=== PATIENT | female | born 1995 | race Caucasian/White ===

== ENCOUNTER → 2017-11-09 | Outpatient (CLI) | payer OTHER ==
[~2017-11-09] MED LIST: CIPRO 500MG TA500 MG PO; NORCO 325 MG-51 TAB PO
== END ==
LOC: COL.LAB 11:31
DX: N39.0 Urinary tract infection, site not specified (principal)

== ENCOUNTER → 2018-06-10 | Outpatient (CLI) | payer OTHER | LOC: COL.LAB 11:01 | DX: Z30.9 Encounter for contraceptive management, unspecified (principal) ==

== ENCOUNTER 2020-01-21 11:10 | Outpatient (CLI) | payer OTHER ==
[~2020-01-21] VITALS: Ht 152.4 cm; Wt 94.5 kg
--- NOTE | 2020-01-21 11:00 | NUR ---
Pt arrives on unit ambulatory with RN. States "not feeling baby move since last night at 1900." Denies LOF, vaginal bleeding, and ctx. EFM and toco applied. BP elevated. Admission assessment completed. Pt updated on POC. No questions or concerns at this time.
[~2020-01-21 11:10] MED LIST changes: +ADVIL200 MG PO; +LIALDA 1.2 GM1.2 GM; +LIALDA 1.2 GM1.2 GM PO; +MUCINEX FAST-M1 EA10 PO
[2020-01-21] MEDS ORDERED: PRENATAL MVI (11:35)
[2020-01-21] MEDS ORDERED: OSCAL 500 TAB500 MG PO (11:35)
[2020-01-21 11:45] VITALS: BP 132/75; PULSE 83; TEMP 98.6
== END 2020-01-21 11:45 | disposition home or self-care (01) ==
LOC: LDRO 11:10
DX: O34.30 Maternal care for cervical incompetence, unspecified trimester (principal); Z3A.00 Weeks of gestation of pregnancy not specified

== ENCOUNTER 2020-04-10 14:34 | Inpatient (IN) | payer OTHER ==
[~2020-04-10] VITALS: Ht 152.4 cm; Wt 98.6 kg
[~2020-04-10 14:34] MED LIST changes: +OSCAL 500 TAB500 MG PO; +PRENATAL MVI
[2020-04-14] VITALS (66 sets, daily range): BP systolic 124–174; BP diastolic 56–105; PULSE 78–129; TEMP 97.7–98.8
--- NOTE | 2020-04-14 01:00 | NUR ---
0100 [0200 DAYLIGHT SAVINGS] G1L0 40 WEEK GEST ADM TO LR6 IN LABOR. WAS SCHEDULED FOR AM INDUCTION. EFM ON. PT UNCOMFORTABLE AND MOVING AROUND. 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 UNCOMFORTABLE WITH CONTRACTIONS. SVE 09/21/1. ADM ASSESSMENT COMPLETED. B/P 170/96. STATES B/P'S HAVE BEEN ELEVATED ON LAST COUPLE OF OFFICE VISITS.
--- NOTE | 2020-04-14 01:20 | NUR ---
0120 DR ARCHULETA NOTIFIED OF PT AND PROGRESS. ORDERS RECEIVED TO ADM IN PATIENT.
--- NOTE | 2020-04-14 01:50 | NUR ---
0150 IV STARTED IN RIGHT HAND. ALMOND GRINDER CALLED FOR EPIDURAL. 0200 SITTING ON SIDE OF BED FOR EPID PLACEMENT. SEE ANESTHSIA RECORDS FOR MORE INFORMATION.
[2020-04-14 02:13] LABS: BASO # 0.1 (0.0-0.2); BASO % 0.2 % (0.0-2.0); EOS # 0.1 (0.0-0.7); EOS % 0.4 % (0-4.0); GRAN # 17.6 (1.4-6.5); GRAN % 82.3 % (42.2-75.2); HEMOGLOBIN 12.4 g/dl (12.5-16.0); LYMPH # 2.3 (1.2-3.4); LYMPH % 10.7 % (20.0-51.0); MEAN CELL VOLUME 79 fl (80.0-100.0); MEAN CORPUSCULAR HEMOGLOBIN 27 pg (27.0-31.0); MEAN CORPUSCULAR HGB CONC 34 g/dl (33.0-37.0); MEAN PLATELET VOLUME 12.5 fl (7.4-10.4); MONO # 1.2 (0.1-0.6); MONO % 5.7 % (1.7-9.3); PLATELET COUNT 241 K/mm3 (130-400); RED BLOOD COUNT 4.65 M/mm3 (4.10-5.30); REDCELL DISTRIBUTION WIDTH-CV 12.9 % (11.5-14.5)
[2020-04-14 02:14] LABS: HEMATOCRIT 36.8 % (37.0-47.0)
[2020-04-14 02:15] LABS: BILIRUBIN,TOTAL 0.7 mg/dL (0.0-1.0); CALCIUM 9.1 mg/dL (8.4-10.2); CREATININE, serum 0.45 (0.52-1.25); POTASSIUM 3.5 mmol/L (3.4-5.0); TOTAL PROTEIN 7.1 gm/dL (6.4-8.2)
--- NOTE | 2020-04-14 02:15 | NUR ---
0215 REMAINS SITTING FOR EPIDURAL. UNABLE TO TRACE FHT'S WHILE SITTING UP.
--- NOTE | 2020-04-14 02:30 | NUR ---
0230 REMAINS UNCOMFORTABLE WITH CONTRACTIONS. NOT FEELING ANY RELIEF FROM EPIDURAL
--- NOTE | 2020-04-14 02:45 | NUR ---
0245 SITTING ON SIDE OF BED FOR REPLACEMENT OF EPIDURAL. SEE ANESTHESIA RECORDS FOR MORE INFORMATION.
--- NOTE | 2020-04-14 06:20 | NUR ---
0620-Recieved bedside shift report from JOAQUIN Fry. Patient sitting WR reports comfortable with epidural. IVF to right hand, Rojas to DD, clear yellow urine. Denies needs. Updated on plan of care. 0635-SVE 6-/-2, Moderate amount of bloody show and clear fluid on bed pad. Trini care provided. Repositioned WL, Dr. Treviño updated see physician notification.
--- NOTE | 2020-04-14 08:50 | NUR ---
[id number] minimal variability in FHR no decels despite position changes, Oxygen via oxymask at 10l/min. Patient WL with peanut ball.
--- NOTE | 2020-04-14 09:10 | NUR ---
Dr. Treviño to patient room, SVE by , Repositioned WR with peanut ball.
--- NOTE | 2020-04-14 10:20 | NUR ---
1020-Dr. Treviño in to patient room for exam. SVE unchanged. Orders to start pitocin. Pit at 2mu/min per protocol and MD order.
--- NOTE | 2020-04-14 14:30 | NUR ---
1430-SVE 10/100/+2, Patient insturcted on pushing. 1435-Patient begins pushing with RN at bedside through contractions. Moves vertex well. 1445- Notified of decels in FHR with pushing efforts, see MD notification. 1505-Dr. Treviño on unit. 1507-Patient begins pushing wit MD at bedside. Moves vertex well. 1515-Spontaneous delivery of head immediately followed by body. Viable female to mothers abdomen. Care of infant attented by JOAQUIN Huber. Apgars 5/7/8. Cord clamped x2 and cut by FOB. taken to radiant warmer. 1519-Spontanous delivery of intact placenta by . Fundal massage firm, pia parra MD VO for hemabate IM and pitocin bolus per protocol infusing. EBL 400ml per MD. 1526-hemabate to left thigh. 2nd degree perineal laceration repaired by MD. Trini care provided. Updated patient on plan of care and safety.
--- NOTE | 2020-04-14 17:30 | NUR ---
1730-Patient easily up to bathroom. Ambulates with steady gait. Voids 300ml dark antonio urine. Trini care assisted. Oriented to room 208. Updated on plan of care and safety.
[2020-04-15] VITALS: BP 137/82; PULSE 73; TEMP 97.8
[2020-04-15 04:30] VITALS: BP 123/89; PULSE 66; TEMP 97.8
[2020-04-15] MEDS ORDERED: IBU600 MG PO (06:02)
[2020-04-15] MEDS ORDERED: PERCOCET 325 MG1 TA2 PO (06:02)
[2020-04-15 07:15] LABS: HEMATOCRIT 30.3 % (37.0-47.0); HEMOGLOBIN 10.3 g/dl (12.5-16.0)
[2020-04-15 08:07] VITALS: BP 142/78; PULSE 82; TEMP 98.3
--- NOTE | 2020-04-15 09:25 | NUR ---
Initial visit; Parents thanked Bilingual Patient Support Caseworker for offering congratulations and God's blessings for the of their daughter. Bilingual Patient Support Caseworker thanked family for choosing [facility].
== END 2020-04-15 17:00 | disposition home or self-care (01) | DRG 806 ==
LOC: OB 14:34 → LDR 04-14 02:00 → OB 04-14 02:00
PROVIDERS: Obstetrics & Gynecology; ADMIT Obstetrics & Gynecology
PROC: 10E0XZZ Delivery of Products of Conception, External Approach (ICD-10-PCS; principal; 2020-04-14)
PROC: 0KQM0ZZ Repair Perineum Muscle, Open Approach (ICD-10-PCS; 2020-04-14)
PROC: 10907ZC Drainage of Amniotic Fluid, Therapeutic from Products of Conception, Via Natural or Artificial Opening (ICD-10-PCS; 2020-04-14)
DX: O13.4 Gestational [pregnancy-induced] hypertension without significant proteinuria, complicating childbirth (principal); K51.90 Ulcerative colitis, unspecified, without complications; Z37.0 Single live birth; O99.62 Diseases of the digestive system complicating childbirth; O99.214 Obesity complicating childbirth; E66.9 Obesity, unspecified; Z3A.40 40 weeks gestation of pregnancy
CPT/HCPCS: J2405; J2590; J7120

== ENCOUNTER → 2020-04-11 | Outpatient (CLI) | payer OTHER ==
[~2020-04-11] MED LIST changes: +IBU600 MG PO; +PERCOCET 325 MG1 TA2 PO; +PROCARDIA XL 3030 MG PO
== END | disposition still patient (30) ==
LOC: ZCOL.LAB 04-10 14:32
DX: Z20.828 Contact with and (suspected) exposure to other viral communicable diseases (principal)

== ENCOUNTER 2020-04-17 21:18 | Observation (INO) | payer OTHER ==
[~2020-04-17] VITALS: Ht 152.4 cm; Wt 96.0 kg
[~2020-04-17 21:18] MED LIST changes: -PROCARDIA XL 3030 MG PO
[2020-04-17 21:47] LABS: BASO % 0.3 % (0.0-2.0); EOS # 0.3 (0.0-0.7); EOS % 2.1 % (0-4.0); GRAN # 7.8 (1.4-6.5); GRAN % 65.6 % (42.2-75.2); HEMOGLOBIN 10.7 g/dl (12.5-16.0); LYMPH % 25.2 % (20.0-51.0); MEAN CELL VOLUME 80 fl (80.0-100.0); MEAN CORPUSCULAR HEMOGLOBIN 27 pg (27.0-31.0); MEAN CORPUSCULAR HGB CONC 33 g/dl (33.0-37.0); MEAN PLATELET VOLUME 11.2 fl (7.4-10.4); MONO # 0.7 (0.1-0.6); PLATELET COUNT 288 K/mm3 (130-400); REDCELL DISTRIBUTION WIDTH-CV 12.7 % (11.5-14.5)
[2020-04-17 21:58] LABS: ALBUMIN 3.4 gm/dL (3.5-5.0); BILIRUBIN,TOTAL 0.5 mg/dL (0.0-1.0); CALCIUM 8.7 mg/dL (8.4-10.2); CREATININE, serum 0.58 (0.52-1.25); POTASSIUM 3.6 mmol/L (3.4-5.0); TOTAL PROTEIN 6.1 gm/dL (6.4-8.2)
[2020-04-17 22:12] LABS: COLLECTION METHOD CATHETER
[2020-04-17 22:18] LABS: PH 7 (5-8); SQUAMOUS EPITHELIAL None Seen /hpf; URINE APPEARANCE Clear; URINE BACTERIA None Seen /hpf; URINE BILIRUBIN Negative (NEGATIVE); URINE BLOOD Negative (NEGATIVE); URINE COLOR Yellow; URINE GLUCOSE Negative (NEGATIVE); URINE KETONE Negative (NEGATIVE); URINE LEUKOCYTE ESTERASE Negative (NEGATIVE); URINE NITRATE Negative (NEGATIVE); URINE PROTEIN(semi-quant) Negative (NEGATIVE); URINE RBC 0-2 /hpf; URINE UROBILINOGEN Negative (NEGATIVE)
--- NOTE | 2020-04-17 23:20 | NUR ---
REPORT RECEIVED FROM ER STAFF PRIOR TO PT ARRIVAL ON THE UNIT. ER STATES THAT PT WILL ARRIVE WITH TELEMETRY IN PLACE. DR. BANUELOS STATES THIS IS NOT NECESSARY. ER CHARGE NURSE NOTIFED, INTEND TO DC TELEMETRY PRIOR TO PT ARRIVAL TO OB.
[2020-04-17 23:30] VITALS: BP 153/83; PULSE 83; TEMP 97.9
--- NOTE | 2020-04-17 23:30 | NUR ---
PT TO UNIT VIA WHEELCHAIR FROM ER WITH ELEVATED BP'S 4 DAYS . BP ELEVATED ON ARRIVAL AT 153/83, MILD EDEMA TO BLE, PT RECEIVED TYLENOL IN THE ER FOR COMPLAINTS OF HEADACHE BUT NOW STATES THIS HAS RESOLVED AND SHE HAS NO PAIN AT THIS TIME. SERIAL BP'S SET, WILL GIVE PO PROCARDIA PER DR. BANUELOS. PLAN OF CARE REVIEWED WITH PT, UNDERSTANDING VERBALIZED.
[2020-04-17 23:45] VITALS: BP 155/114; PULSE 81
[2020-04-17 23:49] VITALS: BP 153/83; PULSE 83; TEMP 97.9
[2020-04-18] VITALS (21 sets, daily range): BP systolic 106–178; BP diastolic 54–109; PULSE 64–101; TEMP 97.7–97.9
[2020-04-18 07:19] LABS: BASO % 0.3 % (0.0-2.0); EOS # 0.3 (0.0-0.7); EOS % 2.7 % (0-4.0); GRAN # 5.9 (1.4-6.5); GRAN % 62.1 % (42.2-75.2); HEMOGLOBIN 10.5 g/dl (12.5-16.0); LYMPH # 2.6 (1.2-3.4); LYMPH % 27.1 % (20.0-51.0); MEAN CELL VOLUME 80 fl (80.0-100.0); MEAN CORPUSCULAR HEMOGLOBIN 26 pg (27.0-31.0); MEAN CORPUSCULAR HGB CONC 33 g/dl (33.0-37.0); MEAN PLATELET VOLUME 11.3 fl (7.4-10.4); MONO # 0.6 (0.1-0.6); MONO % 6.8 % (1.7-9.3); PLATELET COUNT 271 K/mm3 (130-400); RED BLOOD COUNT 3.97 M/mm3 (4.10-5.30); REDCELL DISTRIBUTION WIDTH-CV 12.8 % (11.5-14.5)
[2020-04-18 07:21] LABS: HEMATOCRIT 31.8 % (37.0-47.0)
[2020-04-18 07:32] LABS: ALBUMIN 3.1 gm/dL (3.5-5.0); BILIRUBIN,TOTAL 0.5 mg/dL (0.0-1.0); CALCIUM 8.4 mg/dL (8.4-10.2); CREATININE, serum 0.5 (0.52-1.25); POTASSIUM 3.7 mmol/L (3.4-5.0); TOTAL PROTEIN 5.7 gm/dL (6.4-8.2)
[2020-04-18] MEDS ORDERED: PROCARDIA XL 3030 MG PO (08:49)
--- NOTE | 2020-04-18 09:10 | NUR ---
Follow-up visit; Parents appeared happy to see and thanked her for looking in on them and baby again.
== END 2020-04-18 09:50 | disposition home or self-care (01) ==
LOC: COL.ER 21:18 → OB 22:27
PROVIDERS: Emergency Medicine; ADMIT Obstetrics & Gynecology
DX: O15.2 Eclampsia complicating the puerperium (principal)
CPT/HCPCS: G0378